=== PATIENT | female | born 1965 | race African-American/Black ===

== ENCOUNTER 2017-10-20 08:06 | Emergency (ER) | payer OTHER ==
[~2017-10-20] VITALS: Ht 170.2 cm; Wt 81.7 kg
--- NOTE | ~2017-10-20 | EKG ---
[place] [address] [facility] [place] [address] ELECTROCARDIOGRAM REPORT Name: ERIC SKY Room [facility] [id number] Admission: 10/20/17 Attend Phys: Discharge: 10/20/17 Date of : 61 Report #: [id number] THIS REPORT FOR: //name// [facility] ED Test Date: 2017-10-20 Test Time: 08:06:45 Pat Name: ERIC SKY Department: Room: Gender: F Preparer [employer] Rep[employer]: Julián AGGARWAL : 1965 Requested By: Hemal Koenig Order Number: [id number] MD: Joo Iraheta Measurements Intervals [place] Rate: 75 P: 64 VT: 148 QRS: 18 QRSD: 90 T: 0 QT: 406 QTc: 454 Interpretive Statements Sinus rhythm Borderline T wave abnormalities Compared to ECG 01/10/2014 00:15:47 T-wave inversion no longer present Electronically Signed On 10-20-2017 16:56:52 RIP SAWYER by Joo Iraheta [email or web address] <ELECTRONICALLY SIGNED> By: Joo Iraheta MD, [facility] 10/20/17 1656 5 5 Joo Iraheta MD, [facility] /EPI
[~2017-10-20 08:06] MED LIST: ADVAIR 100-501 EACH INH; ADVAIR HFA115 MCG/21; AMBIEN 5 MG TABL5 M1 PO; ASA81BEC; BAYER CHEWABLE81 MG PO; CATAPRES0.1 MG PO; CELEBREX100 MG/1 C PO; CELEXA40 MG PO; COL-RITE100 MG PO; CYCLOBENZAPRINE10 MG PO; DILAUDID4 MG PO; EDLUAR10 MG PO; HYDROCHLOROTH12.5 MG PO; IRON325 PO; STOOL SOFTENER1 EAC2; VENTOLIN HFA 1818 GM INH
[2017-10-20 08:38] LABS: ANION GAP 6 mmol/L (7-16); BUN 11 mg/dL (7-18); CALCIUM 9.3 mg/dL (8.5-10.1); CHLORIDE 106 mmol/L (98-107); CO2 30 mmol/L (21-32); CREATININE 0.8 mg/dL (0.6-1.0); GLUCOSE 99 mg/dL (74-106); SODIUM 142 mmol/L (136-145)
[2017-10-20 08:48] LABS: ABSOLUTE NEUTROPHILS 2.9 thou/uL (1.4-8.2); ALBUMIN 3.8 g/dL (3.4-5.0); EOSINOPHILS 1.2 % (0.0-3.0); HEMATOCRIT 33.6 % (37.0-47.0); HEMOGLOBIN 10.7 gm/dL (12.0-15.0); LYMPHOCYTES 43.8 % (24.0-44.0); MCH 22.5 pg (26.0-34.0); MCHC 31.7 g/dL (28.0-37.0); MONOCYTES 11.3 % (1.0-8.0); PLATELET COUNT 243 thou/uL (150-400); POLYS 42.7 % (36.0-66.0); RBC 4.73 mil/uL (4.20-5.00); RDW 14.7 % (10.5-14.5); SGOT 28 U/L (15-37); SGPT 34 U/L (30-65); TOTAL BILIRUBIN 0.3 mg/dL (<0.1-1.0); TROPONIN-I < 0.04 ng/mL (<0.06); WBC 6.8 thou/uL (4.0-11.0)
[2017-10-20] MEDS ORDERED: NAPROSYN500 MG PO (09:10)
[2017-10-20] MEDS ORDERED: TRAMADOL 50 MG50 MG PO (09:10)
[2017-10-20] MEDS ORDERED: NORFLEX100 MG PO (09:10)
[2017-10-20 09:44] VITALS: BP 158/66
== END 2017-10-20 09:45 | disposition home or self-care (01) ==
LOC: ER 08:06
PROVIDERS: Emergency Medicine
DX: S23.29XA Dislocation of other parts of thorax, initial encounter (principal); I10 Essential (primary) hypertension; J45.909 Unspecified asthma, uncomplicated; M79.7 Fibromyalgia; Z90.710 Acquired absence of both cervix and uterus; X58.XXXA Exposure to other specified factors, initial encounter; Y93.89 Activity, other specified; Y92.89 Other specified places as the place of occurrence of the external cause; Y99.8 Other external cause status